=== PATIENT | male | born 1980 | race American Indian/Alaskan Native ===

== ENCOUNTER 2021-10-06 23:19 | Emergency (ER) | payer SELFPAY ==
[~2021-10-06] VITALS: Ht 180.3 cm; Wt 122.5 kg
[2021-10-06 23:19] VITALS: BP 172/101
== END 2021-10-07 06:41 | disposition left against medical advice (07) ==
LOC: ER 23:19
DX: R06.02 Shortness of breath (principal); Z53.21 Procedure and treatment not carried out due to patient leaving prior to being seen by health care provider
CPT/HCPCS: 93005